=== PATIENT | female | born 1985 | race American Indian/Alaskan Native ===

== ENCOUNTER 2018-12-18 09:27 | Emergency (ER) | payer BC ==
[2018-12-18 09:50] VITALS: BP 132/86
[2018-12-18 10:40] LABS: Basophils % (Auto) 0.7 % (0.0-1.8); Eosinophils # (Auto) 0.1 K/mm3 (0.0-0.4); Eosinophils % (Auto) 1.6 % (0.0-4.3); Hematocrit 30.7 % (30.3-42.9); Hemoglobin 9.5 gm/dl (10.1-14.3); Lymphocytes # (Auto) 1.9 K/mm3 (1.2-5.4); Lymphocytes % (Auto) 30.7 % (13.4-35.0); Mean Corpuscular HGB Conc 31 % (30-34); Mean Corpuscular Volume 70 fl (79-97); Monocytes # (Auto) 0.3 K/mm3 (0.0-0.8); Monocytes % (Auto) 5.1 % (0.0-7.3); Platelet Count 325 K/mm3 (140-440); Red Blood Count 4.38 M/mm3 (3.65-5.03); Red Cell Distribution Width 16.9 % (13.2-15.2)
[2018-12-18 10:49] LABS: BUN/Creatinine Ratio 22; Blood Urea Nitrogen 13 mg/dL (7-17); Calcium 8.9 mg/dL (8.4-10.2); Hemolysis Index 6
[2018-12-18] MEDS ORDERED: BACTRIM DS PO ONE (12:06)
[2018-12-18] MEDS ORDERED: ZOFRAN ODT PO ONE (12:06)
[2018-12-18 12:35] LABS: HCG Qualitative,Urine Negative (Negative)
--- NOTE | 2018-12-18 12:46 | Emergency Department Report ---
HPI - General Chief Complaint: Dental/Oral Time Seen by Provider: 12/18/18 11:54 - HPI HPI: 33-year-old female presents to the emergency department with a complaint of left upper tooth pain that going on since last , 5 days ago. She says that since that time she has also developed some nausea and vomiting. She denies any fever, facial swelling. She has not taken anything for her symptoms prior to presentation. Patient also complains of a flareup of cold sores to the left side of the mouth over the past 1-2 days. She says that she has a history of this in the past but has been a while. No recent travel or sick contacts at home. ED Past Medical Hx - Past Medical History Previous Medical History?: No - Surgical History Additional Surgical History: C/S - Social History Smoking Status: Never Smoker Substance Use Type: Alcohol - Medications Home Medications: Home Medications Medication Instructions Recorded Confirmed Last Taken Type Acyclovir [Zovirax Tab] 400 mg PO Q5H #35 tab 12/18/18 Unknown Rx Ondansetron [Zofran Odt] 4 mg PO Q8HR PRN #12 tab.rapdis 12/18/18 Unknown Rx Sulfamethoxazole/Trimethoprim 1 each PO BID #12 tablet 12/18/18 Unknown Rx [Bactrim DS TAB] ED Review of Systems ROS: Stated complaint: NAUSEA/LFT SIDE TOOTH PAIN Other details as noted in HPI Comment: All other systems reviewed and negative Constitutional: denies: chills, fever Eyes: denies: eye pain, vision change ENT: dental pain. denies: ear pain Respiratory: denies: cough, shortness of breath Cardiovascular: denies: chest pain, palpitations Gastrointestinal: nausea, vomiting. denies: abdominal pain Genitourinary: denies: dysuria, frequency Musculoskeletal: denies: back pain, arthralgia Skin: rash. denies: change in color Neurological: denies: headache, weakness Physical Exam - Physical Exam Vital Signs: Vital Signs 12/18/18 09:47 Temperature 98 F Pulse Rate 98 H Respiratory 16 Rate Blood Pressure 132/86 O2 Sat by Pulse 99 Oximetry Physical Exam: GENERAL: The patient is well-developed well-nourished. HENT: Normocephalic. Atraumatic. Patient has moist mucous membranes. Oropharynx is clear. There is some tenderness to palpation to the upper left posterior teeth and gumline but no visible or palpable abscess. No drooling or trismus. EYES: Extraocular motions are intact. Pupils equal reactive to light bilaterally. NECK: Supple. Trachea is midline. CHEST/LUNGS: Clear to auscultation. There is no respiratory distress noted. HEART/CARDIOVASCULAR: Regular. There is no tachycardia. There is no murmur. ABDOMEN: Abdomen is soft, nontender. Patient has normal bowel sounds. There is no abdominal distention. SKIN: The patient has a small patchy area of vesicles to the left side of the lips and mouth consistent with herpes labialis. NEURO: The patient is awake, alert, and oriented. The patient is cooperative. The patient has no focal neurologic deficits. The patient has normal speech. MUSCULOSKELETAL: There is no tenderness or deformity. There is no evidence of acute injury. ED Course Vital Signs 12/18/18 09:47 Temperature 98 F Pulse Rate 98 H Respiratory 16 Rate Blood Pressure 132/86 O2 Sat by Pulse 99 Oximetry ED Medical Decision Making - Lab Data Result diagrams: 12/18/18 10:13 12/18/18 10:17 - Medical Decision Making Patient complains of a few days of left upper tooth pain that has started to cause some nausea and vomiting and abdominal pains. I do not see any palpable or visible abscesses but she does have some reproducible tenderness to palpation along the upper left teeth. No drooling or trismus. Labs are unremarkable including CBC, metabolic panel and urinalysis. Also the patient is not . She also has some vesicular lesions concerning for herpes labialis. The patient will be placed on Bactrim and acyclovir. She was given referrals for primary care clinics and dental clinics. She will return to the ER with any worsening of her symptoms or any acute distress. Vital signs stable throughout ED course. - Differential Diagnosis dentalgia, tooth abscess, herpes labialis, dermatitis Critical Care Time: No Critical care attestation.: If time is entered above; I have spent that time in minutes in the direct care of this critically ill patient, excluding procedure time. ED Disposition Clinical Impression: Pain, dental, Herpes labialis Nausea & vomiting Qualifiers: Vomiting type: unspecified Vomiting Intractability: non-intractable Qualified Code(s): R11.2 - Nausea with vomiting, unspecified Disposition: DC-01 TO HOME OR SELFCARE Is pt being admited?: No Condition: Stable Instructions: Oral Herpes Simplex Virus Infections (ED), Toothache (ED) Additional Instructions: Please follow up with a primary care physician and dentist. Return to the emergency Department with any worsening of your symptoms or any acute distress. Prescriptions: Sulfamethoxazole/Trimethoprim [Bactrim DS TAB] 1 each PO BID #12 tablet Ondansetron [Zofran Odt] 4 mg PO Q8HR PRN #12 tab.rapdis PRN Reason: Nausea Acyclovir [Zovirax Tab] 400 mg PO Q5H #35 tab Referrals: [facility] [Outside] - 3-5 Days [facility] [Outside] - 3-5 Days [facility] [Outside] - 3-5 Days Time of Disposition: 12:49
[2018-12-18 13:07] LABS: Bacteria,Urine 1+ /HPF (Negative); Bilirubin,Urine NEG (Negative); Blood,Urine NEG (Negative); Color,Urine Yellow (Yellow); Mucus,Urine 3+ /HPF
== END 2018-12-18 12:54 | disposition home or self-care (01) ==
LOC: ED 09:27
DX: B00.1 Herpesviral vesicular dermatitis (principal); K08.89 Other specified disorders of teeth and supporting structures; R11.2 Nausea with vomiting, unspecified
CPT/HCPCS: 36415; 80048; 81001; 81025; 85025; 99283; Q0162

== ENCOUNTER 2019-11-02 14:35 | Emergency (ER) | payer BC ==
[2019-11-02 15:25] LABS: Hematocrit 28.8 % (30.3-42.9); Hemoglobin 8.8 gm/dl (10.1-14.3); Mean Corpuscular HGB Conc 31 % (30-34); Platelet Count 560 K/mm3 (140-440); Red Blood Count 4.31 M/mm3 (3.65-5.03); Red Cell Distribution Width 18.9 % (13.2-15.2)
[2019-11-02 15:27] LABS: Mean Corpuscular Volume 67 fl (79-97)
[2019-11-02 16:05] LABS: Anisocytosis 1+; Eosinophils % (Manual) 0 % (0.0-4.3); Hypochromasia 2+; Platelet Estimate Consistent w Auto; Total Cells Counted 100
--- NOTE | 2019-11-02 17:26 | Emergency Department Report ---
Abscess Boil HPI - HPI Chief Complaint: Skin/Abscess/Foreign Body Stated Complaint: RT BREAST BLEEDING/DRAINING PUS Time Seen by Provider: 11/02/19 14:44 Duration: >1 Week Location: Chest Severity: Severe History: Yes Pain, Yes Purulent Drainage, No Fever, No Numbness, No Foreign Body, No Previous History, No Insect Bite HPI: 34-year-old -[place] patient presents with complaints of right breast abscess and drainage for the past 2 weeks. Patient states she was seen by her primary care provider and placed on Bactrim 2 weeks ago however her symptoms have worsened. She states she called her primary care physician and was placed on clindamycin 2 days ago. She states while she was in the shower today the area opened up and was draining yellow pus. She states there is surrounding redness and severe tenderness that she rates as a 8 out of 10 in severity. She denies any fever/chills/sweats or history of diabetes/HIV. Home Medications: Previous Rx's Medication Instructions Recorded Last Taken Type Acyclovir [Zovirax Tab] 400 mg PO Q5H #35 tab 12/18/18 Unknown Rx Ondansetron [Zofran Odt] 4 mg PO Q8HR PRN #12 tab.rapdis 12/18/18 Unknown Rx Sulfamethoxazole/Trimethoprim 1 each PO BID #12 tablet 12/18/18 Unknown Rx [Bactrim DS TAB] Acetaminophen/Codeine [Tylenol 1 tab PO Q6H PRN #12 tab 11/02/19 Unknown Rx /Codeine # 3 tab] Mupirocin [Bactroban 2% OINT] 1 applic TP TID 10 Days #1 tube 11/02/19 Unknown Rx Allergies/Adverse Reactions: Allergies Allergy/AdvReac Type Severity Reaction Status Date / Time No Known Allergies Allergy Unverified 12/18/18 09:30 ED Review of Systems ROS: Stated complaint: RT BREAST BLEEDING/DRAINING PUS Other details as noted in HPI Constitutional: denies: chills, diaphoresis, fever, malaise, weakness Respiratory: denies: cough, shortness of breath Cardiovascular: denies: chest pain Skin: rash, lesions, change in color Hematological/Lymphatic: denies: swollen glands ED Past Medical Hx - Past Medical History Previous Medical History?: No - Surgical History Past Surgical History?: Yes Additional Surgical History: C/S - Social History Smoking Status: Never Smoker Substance Use Type: Alcohol - Medications Home Medications: Home Medications Medication Instructions Recorded Confirmed Last Taken Type Acyclovir [Zovirax Tab] 400 mg PO Q5H #35 tab 12/18/18 Unknown Rx Ondansetron [Zofran Odt] 4 mg PO Q8HR PRN #12 tab.rapdis 12/18/18 Unknown Rx Sulfamethoxazole/Trimethoprim 1 each PO BID #12 tablet 12/18/18 Unknown Rx [Bactrim DS TAB] Acetaminophen/Codeine [Tylenol 1 tab PO Q6H PRN #12 tab 11/02/19 Unknown Rx /Codeine # 3 tab] Mupirocin [Bactroban 2% OINT] 1 applic TP TID 10 Days #1 tube 11/02/19 Unknown Rx ED Abscess Boil Physical Exam - Exam General: Vital signs noted. No distress. Alert and acting appropriately. Size: >5 cm Exam: Yes Tenderness, Yes Fluctuance, Yes Surrounding Cellulites/Erythema, Yes Normal Circulation, No Lymphangitis Exam: Open draining abscess noted to right breast with 5 to 7 cm of surrounding cellulitis. Area is significantly tender to palpation. Areole and nipple are not involved. I & D Note - I & D Note I & D Note: Area cleaned using Betadine. Lidocaine 1% was used to anesthetize the area-6 ccs. 11 blade used to widen drianage side. Wound was wet with 100 cc of saline. Iodoform packing placed in wound. Wound was dressed with a sterile dressing. Patient tolerated procedure well. Minimal bleeding occurred during the procedure without any immediate complications. ED Course Vital Signs 11/02/19 11/02/19 14:42 14:44 Temperature 98.3 F 98.3 F Pulse Rate 85 79 Respiratory 18 18 Rate Blood Pressure 138/78 138/78 O2 Sat by Pulse 98 97 Oximetry Critical care attestation.: If time is entered above; I have spent that time in minutes in the direct care of this critically ill patient, excluding procedure time. ED Medical Decision Making - Lab Data Result diagrams: 11/02/19 14:56 Lab Results 11/02/19 Range/Units 14:56 WBC 9.8 (4.5-11.0) K/mm3 RBC 4.31 (3.65-5.03) M/mm3 Hgb 8.8 L (10.1-14.3) gm/dl Hct 28.8 L (30.3-42.9) % MCV 67 L (79-97) fl MCH 21 L (28-32) pg MCHC 31 (30-34) % RDW 18.9 H (13.2-15.2) % Plt Count 560 H (140-440) K/mm3 Add Manual Diff Complete Total Counted 100 Seg Neuts % (Manual) 75.0 H (40.0-70.0) % Band Neutrophils % 0 % Lymphocytes % (Manual) 21.0 (13.4-35.0) % Reactive Lymphs % (Man) 0 % Monocytes % (Manual) 3.0 (0.0-7.3) % Eosinophils % (Manual) 0 (0.0-4.3) % Basophils % (Manual) 1.0 (0.0-1.8) % Metamyelocytes % 0 % Myelocytes % 0 % Promyelocytes % 0 % Blast Cells % 0 % Nucleated RBC % Not Reportable Seg Neutrophils # Man 7.4 (1.8-7.7) K/mm3 Band Neutrophils # 0.0 K/mm3 Lymphocytes # (Manual) 2.1 (1.2-5.4) K/mm3 Abs React Lymphs (Man) 0.0 K/mm3 Monocytes # (Manual) 0.3 (0.0-0.8) K/mm3 Eosinophils # (Manual) 0.0 (0.0-0.4) K/mm3 Basophils # (Manual) 0.1 (0.0-0.1) K/mm3 Metamyelocytes # 0.0 K/mm3 Myelocytes # 0.0 K/mm3 Promyelocytes # 0.0 K/mm3 Blast Cells # 0.0 K/mm3 WBC Morphology Not Reportable Hypersegmented Neuts Not Reportable Hyposegmented Neuts Not Reportable Hypogranular Neuts Not Reportable Smudge Cells Not Reportable Toxic Granulation Not Reportable Toxic Vacuolation Not Reportable Dohle Bodies Not Reportable Pelger-Huet Anomaly Not Reportable Shayy Rods Not Reportable Platelet Estimate Consistent w auto Clumped Platelets Not Reportable Plt Clumps, EDTA Not Reportable Large Platelets Not Reportable Giant Platelets Not Reportable Platelet Satelliting Not Reportable Plt Morphology Comment Not Reportable RBC Morphology Not Reportable Dimorphic RBCs Not Reportable Polychromasia Not Reportable Hypochromasia 2+ Poikilocytosis Not Reportable Anisocytosis 1+ Microcytosis 1+ Macrocytosis Not Reportable Spherocytes Not Reportable Pappenheimer Bodies Not Reportable Sickle Cells Not Reportable Target Cells Not Reportable Tear Drop Cells Not Reportable Ovalocytes Not Reportable Helmet Cells Not Reportable [place] Bodies Not Reportable [place] Rings Not Reportable Smith Cells Not Reportable Bite Cells Not Reportable Crenated Cell Not Reportable Elliptocytes Not Reportable Acanthocytes (Spur) Not Reportable Rouleaux Not Reportable Hemoglobin C Crystals Not Reportable Schistocytes Not Reportable Malaria parasites Not Reportable El Bodies Not Reportable Hem Pathologist Commnt No - Medical Decision Making Patient here with right breast abscess. She is currently on clindamycin 300 mg p.o. 3 times daily by her PCP. Abscess was drained without any immediate complications. Patient to continue on clindamycin. We will also send patient with a prescription for mupirocin. Patient states she has an appointment for follow-up with her primary care physician on Tuesday of next week. Discussed wound care in detail and strict return precautions in detail with patient who verbalizes understanding. ED Disposition Clinical Impression: Abscess of right breast, Cellulitis of right breast Disposition: - TO HOME OR SELFCARE Is pt being admited?: No Condition: Stable Instructions: Cellulitis (ED), Abscess Incision and Drainage (ED) Prescriptions: Mupirocin [Bactroban 2% OINT] 1 applic TP TID 10 Days #1 tube Acetaminophen/Codeine [Tylenol /Codeine # 3 tab] 1 tab PO Q6H PRN #12 tab PRN Reason: Pain , Severe (7-10) Referrals: PRIMARY CARE, [Primary Care Provider] - 3-5 Days Forms: Work/School Release Form(ED)
[2019-11-02 17:44] VITALS: BP 131/71
== END 2019-11-02 17:43 | disposition home or self-care (01) ==
LOC: ED 14:35
DX: N61.1 Abscess of the breast and nipple (principal); Z79.899 Other long term (current) drug therapy; Z98.890 Other specified postprocedural states
CPT/HCPCS: 36415; 85007; 85025; 87076; 87116; 87186